=== PATIENT | female | born 2000 | race Caucasian/White ===

== ENCOUNTER 2019-12-04 20:20 | Emergency (ER) | payer OTHER ==
[~2019-12-04] VITALS: Ht 165.1 cm; Wt 77.1 kg
[2019-12-04] MEDS ORDERED: CLEOCIN HCL300 MG PO (20:50)
[2019-12-04] MEDS ORDERED: IBUPROFEN 200200 M1 PO (20:51)
[2019-12-04] MEDS ORDERED: ACETAMINOPHEN650 M2 PO (20:51)
[2019-12-04] MEDS ORDERED: ANUSOL-HC25 MG RECTAL (21:18)
[2019-12-04 21:31] VITALS: BP 124/82
== END 2019-12-04 21:26 | disposition home or self-care (01) ==
LOC: ER 20:20
DX: K62.5 Hemorrhage of anus and rectum (principal); R11.2 Nausea with vomiting, unspecified; Z79.899 Other long term (current) drug therapy

== ENCOUNTER 2020-12-24 21:24 | Emergency (ER) | payer BC ==
[~2020-12-24] VITALS: Ht 165.1 cm; Wt 88.5 kg
[~2020-12-24 21:24] MED LIST: ACETAMINOPHEN650 M2 PO; ANUSOL-HC25 MG RECTAL; CLEOCIN HCL300 MG PO; IBUPROFEN 200200 M1 PO
[2020-12-24 21:28] VITALS: BP 151/94
[2020-12-24] MEDS ORDERED: NOHOMEMEDICATIONS (21:40)
[2020-12-24] MEDS ORDERED: AZITHROMYCIN 2250 MG PO (21:46)
== END 2020-12-24 21:54 | disposition home or self-care (01) ==
LOC: ER 21:24
DX: H66.91 Otitis media, unspecified, right ear (principal)